=== PATIENT | female | born 1935 | race Caucasian/White ===

== ENCOUNTER 2016-05-31 10:42 | Inpatient (IN) | payer OTHER, BC ==
[2016-05-14 10:56] VITALS: BMI 22.0
--- NOTE | 2016-05-30 09:13 | HISTORY & PHYSICAL EXAMINATION ---
CHIEF COMPLAINT: Left hip pain. HISTORY OF PRESENT ILLNESS: Desitny is a 79-year-old female with a 1-1/2 year history of pain in her left hip. The patient rates her pain a 7/10. She has pain with her daily activities. She has limited standing and walking tolerance. Pain is worse with weightbearing. The patient had injections, exercise and Tylenol plus tramadol without relief. She has failed conservative treatment and is scheduled for left hip replacement. PAST MEDICAL HISTORY: Hypertension, hypercholesterolemia, history of CVA. She denies heart disease or DVT. PAST SURGICAL HISTORY: Cholecystectomy, tubal ligation, ORIF left elbow, tonsillectomy, adenoidectomy. SOCIAL HISTORY: The patient denies alcohol or tobacco use. She lives in a single story home. She is and retired. FAMILY HISTORY: Negative for DVT. DISCHARGE MEDICATIONS: Aspirin 325 mg daily, lisinopril 40 mg daily, amlodipine 5 mg daily, folic acid 1 mg daily, Plavix 75 mg daily, multivitamin 1 daily, calcium plus D, vitamin D3, CoQ10, rosuvastatin 20 mg, Tylenol as needed, tramadol as needed. ALLERGIES: PENICILLIN. REVIEW OF SYSTEMS: See HPI. Ten other systems reviewed, all negative. PHYSICAL EXAMINATION: VITAL SIGNS: Height 5 foot 2 inches, weight 121 pounds, BMI is 22. GENERAL: This is a well-developed, well-nourished female who is alert and oriented x3. Mood and affect are appropriate. HEENT: Normocephalic, atraumatic. Mucous membranes are moist and intact. NECK: Supple without lymphadenopathy. HEART: Regular rate and rhythm without murmurs, rubs or gallops. LUNGS: Clear to auscultation without wheezes or rhonchi. ABDOMEN: Soft and nontender. Bowel sounds are equal and active. EXTREMITIES: No ecchymosis, redness or warmth. Thigh and calf are soft and nontender. Log roll of the hip reproduces pain in the groin. She is neurovascularly intact with +5/5 strength. Range of motion reproduces pain in the hip and range of motion is decreased. She walks with an antalgic gait. X-RAY EXAMINATION: AP and lateral views show joint space narrowing and osteophyte formation. IMPRESSION: Degenerative joint disease, left hip. PLAN: The patient will be admitted for a left total hip arthroplasty, direct anterior approach. The patient is on chronic Plavix and aspirin which we will resume postoperatively.
[~2016-05-31] VITALS: Ht 157.5 cm; Wt 54.6 kg
[2016-05-31] VITALS (7 sets, daily range): BP systolic 96–159; BP diastolic 60–73; PULSE 62–75; TEMP 36.4–36.5; O2SAT 96–100; Ht 157.5 cm; Wt 54.6 kg
[~2016-05-31 10:42] MED LIST: ACET-1256 PO; ACETAMINOPHEN 500 MG TAB PO SCH; AMLO-110 PO; ASPI325T39 PO; BUPIVACAINE 0.5 % 5 MG/1 ML PF 10ML VIAL ONE; CALC500C70 PO; CHOL1000 PO; CLINDAMYCIN 600 MG/54 ML D5W 54 ML IV SCH; CLOP1TAB15 PO; COEN1CAP28 PO; CeleBREX 200 MG CAP PO SCH; DEXAMETHASONE 4 MG TAB PO SCH; FAMOTIDINE 20 MG TAB PO SCH; FOLI1TAB7 PO; GABAPENTIN 300 MG CAP PO SCH; LACTATED RINGER'S 1000ML 1,000 ML IV SCH; LACTATED RINGER'S 1000ML IV SCH; LISI40TA PO; METOCLOPRAMIDE HCL 10 MG TAB PO SCH; MULT-506 PO; OXYCODONE HCL 10 MG TABCR (OXYCONTIN) PO SCH; POLYMYXIN B SULFATE 100,000 UNITS in NSS 100ML IR SCH; ROPIVACAINE 5MG/ML 30 ML 150 MG, BUPIVACAINE/EPINEPHR 0.5% MPF 30 ML, KETOROLAC TROMETH... INFIL SCH; ROSU20TA PO; TRAM-10 PO; VANCOMYCIN INJ 400 MG in NSS 100ML IR SCH
[2016-05-31] MEDS ORDERED: LABETALOL HCL IV 5 MG/ML 20ML IV PRN (11:15)
[2016-05-31] MEDS ORDERED: ATROPINE SULFATE 0.1 MG/ML 5ML SYR IV PRN (11:15)
[2016-05-31] MEDS ORDERED: EpHEDrine SULFATE INJ 50 MG/ML AMP IV PRN (11:15)
[2016-05-31] MEDS ORDERED: FENTANYL CITRATE INJ 50 MCG/1 ML 2 ML VIAL IV PRN (11:15)
[2016-05-31] MEDS ORDERED: HYDROmorphone INJ 1 MG/ML SYR IV PRN (11:15)
[2016-05-31] MEDS ORDERED: ONDANSETRON INJ 2 MG/ML 2 ML VIAL IV PRN ×2 (11:15→15:30)
[2016-05-31] MEDS ORDERED: MEPERIDINE HCL 25 MG/ML CARP IV PRN (11:15)
[2016-05-31] MEDS ORDERED: ASPI81TA28 PO (11:16)
[2016-05-31] MEDS ORDERED: MIDAZOLAM HCL 1 MG/ML 2ML VIAL ONE ×2 (12:58→13:39)
--- NOTE | 2016-05-31 13:09 | History & Physical Bridge Note ---
H&P Re-Evaluation Bridge Note: I have examined the patient, reviewed the History & Physical and in the interval since the performance of the History & Physical I have noted the following changes of clinical significance: No changes noted
[2016-05-31] MEDS ORDERED: ORTHO JOINT ANESTHETIC ONE (13:41)
[2016-05-31] MEDS ORDERED: POVIDONE-IODINE OP SOLN 30 ML BTL ONE (13:41)
[2016-05-31] MEDS ORDERED: BACITRACIN 50000 UNIT VIAL ONE (13:41)
[2016-05-31] MEDS ORDERED: PROPOFOL IV EMULSION 10 MG/ML 20 ML VIAL IV ONE (14:28)
[2016-05-31] MEDS ORDERED: PHENYLEPHRINE 100MCG/ML 5ML SYR ONE (14:52)
--- NOTE | 2016-05-31 15:28 | [facility] Post Operative Brief Note ---
Immediate Operative Summary Operative Date May 31, 2016. Pre-Operative Diagnosis Left hip degenerative joint disease Post-Operative Diagnosis Left hip degenerative joint disease Procedure(s) Performed Left Total Hip Arthroplasty Direct Anterior Approach, Uncemented Surgeon Dr. Kyler Johansen Rotary Drier Operator Surgeon(s) Angelica Rebollar PA-C Estimated Blood Loss 50ml Findings djd Specimens A: Left femoral head Complication(s) None Disposition Recovery Room / PACU
[2016-05-31] MEDS ORDERED: MoRPHine SULFATE 2 MG/ML CARP IV PRN (15:30)
[2016-05-31] MEDS ORDERED: ALUMINUM/MAGNESIUM/SIMETH (MAALOX MAX) 30 ML UDC PO PRN (15:30)
[2016-05-31] MEDS ORDERED: BISACODYL 10 MG SUPP PR PRN (15:30)
[2016-05-31] MEDS ORDERED: DiphenhydrAMINE HCL 50 MG/ML VIAL IV PRN (15:30)
[2016-05-31] MEDS ORDERED: METOCLOPRAMIDE HCL INJ 5 MG/ML 2 ML VIAL IV PRN (15:30)
[2016-05-31] MEDS ORDERED: SOD PHOSPHATE/SOD BIPHOSPHATE ENEMA 132 ML BTL PR PRN (15:30)
[2016-05-31] MEDS ORDERED: ZOLPIDEM TARTRATE 5 MG TAB PO PRN (15:30)
[2016-05-31] MEDS ORDERED: MAGNESIUM HYDROXIDE SUSP 30 ML UDC PO PRN (15:30)
--- NOTE | 2016-05-31 16:26 | Anesthesiology Progress Note ---
Anesthesia Post Op Note Date & Time May 31, 2016 at 16:25 Vital Signs Pain Intensity: 0 Vital Signs Past 12 Hours Date Time Temp Pulse Resp B/P Pulse Ox O2 Delivery O2 Flow Rate FiO2 05/31/16 16:20 37.3 77 16 107/58 100 Nasal Cannula 2 05/31/16 16:10 73 16 112/60 100 Nasal Cannula 2 05/31/16 16:00 75 16 108/56 100 Nasal Cannula 2 05/31/16 15:50 71 16 105/56 100 Nasal Cannula 2 05/31/16 15:41 36.6 81 16 104/64 100 Nasal Cannula 2 05/31/16 11:16 36.5 66 18 138/73 99 Room Air Notes Mental Status: alert / awake / arousable, participated in evaluation Pt Amnestic to Procedure: Yes Nausea / Vomiting: adequately controlled Pain: adequately controlled Airway Patency, RR, SpO2: stable & adequate BP & HR: stable & adequate Hydration State: stable & adequate Anesthetic Complications: no major complications apparent
--- NOTE | 2016-05-31 16:40 | DIAGNOSTIC IMAGING REPORT ---
LEFT PELVIS/UNILATERAL HIP 1 VIEW CLINICAL HISTORY: IN PACU - A/P PELVIS and LATERAL HIP INCLUDING ALL OF IMPLANT joint replacement COMPARISON: None. DISCUSSION: Total left hip replacement. Prosthetic is in good position. Surgical drains are in place. There is no evidence for soft tissue swelling. IMPRESSION: Left total joint replacement. Electronically signed by: Jae Adler M.D. 05/31/2016 4:39 PM Dictated Date/Time: 05/31/2016 4:39 PM
--- NOTE | 2016-05-31 17:15 | OPERATIVE REPORT ---
DATE OF OPERATION: 05/31/2016 PREOPERATIVE DIAGNOSIS: Degenerative arthritis, left hip. POSTOPERATIVE DIAGNOSIS: Same. PROCEDURE: Left total hip replacement. SURGEON: Kyler Johansen MD BOW MAKER CUSTOM: CARLA Holden ANESTHESIA: Spinal. BLOOD LOSS: 50 mL. REPLACEMENT FLUIDS: 1500 mL crystalloid. DRAINS: Hemovacs x1. CULTURES: None. COMPLICATIONS: None. COMPONENTS USED: [employer] hip system, acetabulum size 50, femur size 9 standard offset, femoral head -3, 32 mm. NOTE: CARLA Holden was present and assisted throughout due to the complicated nature of this case. She helped with preparation and set up. She first assisted throughout and personally closed the fascial, subcutaneous and skin layers and applied the postoperative dressing. DESCRIPTION OF PROCEDURE: Following satisfactory spinal, the patient was supine. The left leg was placed in the traction device and the right leg in the well leg jackson. The leg was prepared with ChloraPrep and draped sterilely. Following a surgical time-out, an anterior approach in the interval between the sartorius and tensor muscles was completed. The circumflex femoral vessels were identified and ligated. An anterior capsulotomy was performed exposing a severely arthritic femoral neck and head. The femoral neck and head were trimmed and removed. The acetabular self-retaining retractor was placed. Acetabular reaming was completed and with fluoroscopic guidance, the 50 shell was impacted into an anatomic position, secured with a dome screw. Local anesthetic was placed and after irrigation, the polyethylene liner was placed. Attention was turned to the femur, which was placed in a position of external rotation, extension and adduction. Femoral canal was prepared up to a size 9. A trial reduction with a -3 head under fluoroscopy showed good fit and fill of the proximal canal and religion of leg lengths using anatomic landmarks. The hip was dislocated. The trial component was removed. The final implant was placed and after irrigation, the hip was reduced. A Betadine soak was performed for 5 minutes and local anesthetic was placed. The wound was then irrigated. The capsule was closed with #1 Vicryl interrupted. A drain was placed. The fascia was closed with a running suture of #1 Vicryl, the subcutaneous tissues with 2-0 Vicryl, and the skin with a running subcuticular stitch of 3-0 V-Loc. Dermabond and dry dressing were applied. The patient was returned to her bed in stable condition. I attest to the content of the Intraoperative Record and any orders documented therein. Any exceptio ns are noted below.
[2016-05-31] MEDS: CLINDAMYCIN IV 600 MG in DEXTROSE 5% ADD-VANTAGE 50ML 50 ML IV SCH (19:46)
[2016-05-31] MEDS: D5W AND 1/2NSS + 20MEQ KCL 1,000 ML IV SCH (19:46)
[2016-05-31] MEDS: SENNA 8.6 MG TAB PO SCH (21:50)
[2016-05-31] MEDS: ROSUVASTATIN CALCIUM 20 MG TAB PO SCH (21:50)
[2016-05-31] MEDS: ACETAMINOPHEN 500 MG TAB PO SCH (21:51)
[2016-05-31] MEDS: TRAMADOL HCL 50 MG TAB PO PRN (21:51)
[2016-06-01] MEDS: OXYCODONE HCL IR 5 MG TAB (IMMEDIATE RELEASE) PO PRN (00:42)
[2016-06-01 03:31] VITALS: BP 100/62; PULSE 61; TEMP 36.7; O2SAT 96
[2016-06-01] MEDS: CLINDAMYCIN IV 600 MG in DEXTROSE 5% ADD-VANTAGE 50ML 50 ML IV SCH (04:04)
[2016-06-01] MEDS: D5W AND 1/2NSS + 20MEQ KCL 1,000 ML IV SCH ×2 (04:04→13:41)
[2016-06-01] MEDS: ACETAMINOPHEN 500 MG TAB PO SCH ×3 (05:34→21:46)
[2016-06-01 07:00] VITALS: BP 111/57; PULSE 59; TEMP 36.5; O2SAT 100
[2016-06-01 07:20] LABS: BASO % 0.1 %; BASO ABS # 0.01 K/uL (0-0.2); HEMATOCRIT 23.7 % (37-47); IG% 0.3 %; LYMPH % 9.7 %; LYMPH ABS # 0.96 K/uL (1.2-3.4); MEAN CELL VOLUME 93.3 fL (80-100); MEAN CORPUSCULAR HEMOGLOBIN 32.3 pg (25-34); MEAN CORPUSCULAR HGB CONC 34.6 g/dl (32-36); MONO % 6.8 %; NEUT % 83.1 %; PLATELET COUNT 196 K/uL (130-400); RED BLOOD COUNT 2.54 M/uL (4.2-5.4); WHITE BLOOD COUNT 9.92 K/uL (4.8-10.8)
[2016-06-01 07:58] LABS: CALCIUM 8.5 mg/dl (8.5-10.1); CREATININE 1.1 mg/dl (0.60-1.20); POTASSIUM 4.2 mmol/L (3.5-5.1)
[2016-06-01 08:01] LABS: COMPLETE YES
--- NOTE | 2016-06-01 08:45 | Orthopedic Progress Note ---
Orthopedic Progress Note Date of Service Jun 01, 2016. Subjective Post OP Day: 1 Reports: feeling well, pain controlled w PO medications, Denies: SOB, calf pain , chest pain, complaints, light headedness Objective calves soft nontender, N/V intact, hip located, dressing C/D/I, A&O x3, toes mobile, hemovac drainage (425 total 100 last shift ) Date Time Temp Pulse Resp B/P Pulse Ox O2 Delivery O2 Flow Rate FiO2 06/01/16 03:31 36.7 61 16 100/62 96 Room Air 06/01/16 00:35 Room Air 05/31/16 23:38 36.4 62 16 99/60 96 Room Air 05/31/16 19:45 36.5 69 16 96/60 98 Room Air 05/31/16 17:57 72 16 159/70 100 3.0 05/31/16 17:44 68 16 107/68 99 2.0 05/31/16 17:15 75 16 112/66 99 2.0 05/31/16 16:45 99 Nasal Cannula 2.0 05/31/16 16:45 Nasal Cannula 2.0 05/31/16 16:45 36.4 75 16 114/67 99 Nasal Cannula 2.0 05/31/16 16:20 37.3 77 16 107/58 100 Nasal Cannula 2 05/31/16 16:10 73 16 112/60 100 Nasal Cannula 2 05/31/16 16:00 75 16 108/56 100 Nasal Cannula 2 05/31/16 15:50 71 16 105/56 100 Nasal Cannula 2 05/31/16 15:41 36.6 81 16 104/64 100 Nasal Cannula 2 05/31/16 11:16 36.5 66 18 138/73 99 Room Air Laboratory Results 24 Hours: Test 06/01/16 06:05 White Blood Count 9.92 K/uL Red Blood Count 2.54 M/uL Hemoglobin 8.2 g/dL Hematocrit 23.7 % Mean Corpuscular Volume 93.3 fL Mean Corpuscular Hemoglobin 32.3 pg Mean Corpuscular Hemoglobin Concent 34.6 g/dl Platelet Count 196 K/uL Mean Platelet Volume 9.0 fL Neutrophils (%) (Auto) 83.1 % Lymphocytes (%) (Auto) 9.7 % Monocytes (%) (Auto) 6.8 % Eosinophils (%) (Auto) 0.0 % Basophils (%) (Auto) 0.1 % Neutrophils # (Auto) 8.25 K/uL Lymphocytes # (Auto) 0.96 K/uL Monocytes # (Auto) 0.67 K/uL Eosinophils # (Auto) 0.00 K/uL Basophils # (Auto) 0.01 K/uL Assessment & Plan Assessment: pod 1 greer ANEMIA ACUTE ON CHRONIC DUE TO SURGERY BUT JHON WELL HX TIA ON PLAVIX Plan: MONITOR HGB BEGIN PT PLAN DC TOMORROW W [facility]VANT[facility] HH IF STABLE Inhouse Planning Pain Management: PO Tylenol, Oxy IR DVT Prophylaxis: TEDs, SCDs, ASA, other (PLAVIX ) Discharge Planning Discharge Planning: home with home health Pain Management: PO Tylenol, Oxy IR DVT Prophylaxis: TEDs, ASA Therapy: Physical Therapy, Occupational Therapy
[2016-06-01] MEDS: CALCIUM 600MG + VIT D 400 IU TAB PO SCH (09:55)
[2016-06-01] MEDS: ASPIRIN 325 MG ECTAB PO SCH (09:55)
[2016-06-01] MEDS: AMLODIPINE BESYLATE 5 MG TAB PO SCH (09:56)
[2016-06-01] MEDS: MULTIVITAMIN TAB PO SCH (09:56)
[2016-06-01] MEDS: CLOPIDOGREL BISULFATE 75 MG TAB PO SCH (09:57)
[2016-06-01] MEDS: LISINOPRIL 40 MG TAB PO SCH (09:57)
[2016-06-01] MEDS: PANTOprazole SOD 40 MG TAB PO SCH (09:57)
[2016-06-01 10:45] VITALS: O2SAT 100
[2016-06-01 11:05] VITALS: BP 110/65; PULSE 66
[2016-06-01] MEDS: TRAMADOL HCL 50 MG TAB PO PRN ×2 (15:32→20:38)
[2016-06-01 15:47] VITALS: BP 120/60; PULSE 75; TEMP 36.6; O2SAT 100
--- NOTE | 2016-06-01 20:31 | Discharge Instructions ---
Discharge Instructions Admission Reason for Admission: Left Hip Degenerative Arthritis Discharge Discharge Diagnosis / Problem: Left Hip Djd Discharge Goals Goal(s): Decrease discomfort, Improve function Activity Recommendations Activity Limitations: per Instructions/Follow-up section Weightbearing Status: Left weightbearing (as tolerated) . Instructions / Follow-Up Instructions / Follow-Up ACTIVITY RECOMMENDATIONS: SELF CARE INSTRUCTIONS AFTER TOTAL HIP REPLACEMENT : Direct Anterior Approach Until the incision and soft tissues around your hip have healed, there is a possibility that the hip prosthesis could dislocate. A. Hip flexion ( Up & Down out of chair or steps ) may be difficult. This is normal. B. Numbness in front of the thigh is also normal for a few weeks. C. Use hand rails when walking on stairs. D. Wear low heeled shoes with non-slip soles. E. Be sure that your floors are free of things that could trip you - throw rugs , electrical cords, small objects. Avoid wet and waxed floors, especially with crutches and canes. F. Try to walk several times a day with rest periods between. G. Continue with all the exercises taught to you in the hospital. Again, make walking a part of your daily routine. SPECIAL CARE INSTRUCTIONS: VERY IMPORTANT TO READ AND REVIEW A. You may still be at risk for phlebitis and blood clots. 1. Wear surgical stockings (YADIEL hose) for 2 weeks after surgery to improve circulation and reduce swelling. 2. Take Aspirin 81mg twice daily for 4 weeks or as directed by your doctor. This is your blood thinner. 3. High risk patients may be prescribed a stronger blood thinner if necessary. 4. If you are on Coumadin normally, your family doctor/slip caster should monitor your blood work. Expect a phone call the day of or the day after bloodwork is drawn to adjust your dosage. B. You must take antibiotics before having dental work, bladder, bowel and other surgery. Your doctor will provide you with a permanent card to carry describing precautions. C. Call [facility] if you have a fever, redness or swelling around the incision, cloudy drainage from incision, or sudden increase in pain in your hip, not relieved by your regular pain medication. D. Please call the office at if you have any concerns or questions about your operation or recovery. * YOU MAY SHOWER, NO TUB BATHS UNTIL CLEARED BY YOUR DOCTOR. - Keep an extra close eye on the top portion of your incision. Be sure to keep clean & dry. * WEAR YADIEL HOSE 20 HOURS PER DAY FOR 2 WEEKS. * YOU MAY PROGRESS FROM A WALKER, TO A CANE, TO INDEPENDENT AT YOUR OWN PACE. * MOST PATIENTS WILL HAVE HOME NURSING FOR THERAPY. IF YOU DECIDE TO DO OUTPATIENT PHYSICAL THERAPY, PLEASE SCHEDULE THIS 3 TIMES PER WEEK. * DERMABOND Prineo- This is a mesh tape dressing that is covered with glue. It should remain in place until the incision is properly healed, usually 10-14 days. This dressing is designed to naturally slough off. You may trim the excess mesh tape as it peels off. Incision may be briefly wet in a shower. Dry immediately by blotting with a clean, dry towel. Do not bath or swim until instructed by your doctor. Do not scratch, rub, or pick at the dressing. Do not apply any topical ointments or lotions until dressing is completely removed and/or instructed by your doctor. There may be a small piece of suture material at one end of your incision. Do not pull or trim this. If it is bothersome or catching on clothing, you may cover it with a band-aid. FOLLOW UP VISIT: If appointment is not already scheduled: Please call [facility] to make a follow-up appointment for 2 weeks after your surgery at . Current Hospital Diet Patient's current hospital diet: Regular Diet Discharge Diet Recommended Diet: Regular Diet Procedures Procedures Performed: Left Total Hip Arthroplasty Direct Anterior Approach, Uncemented Pending Studies Studies pending at discharge: no Medical Emergencies . Who to Call and When: Medical Emergencies: If at any time you feel your situation is an emergency, please call 911 immediately. . Non-Emergent Contact Non-Emergency issues call your: Surgeon Call Non-Emergent contact if: temperature is above 101.5, your pain is not controlled, your pain is worsening, wound has increased drainage, wound has increased redness . "Provider Documentation" section prepared by Hasmukh Sandoval. VTE Core Measure Inpt VTE Proph given/why not?: Other Anticoagulation, T.E.D. Stockings, SCD's [place] Drug Monitoring Program Search Results: patient reviewed within database, no issues identified
[2016-06-01] MEDS: SENNA 8.6 MG TAB PO SCH (20:37)
[2016-06-01] MEDS: ROSUVASTATIN CALCIUM 20 MG TAB PO SCH (20:37)
[2016-06-01 23:10] VITALS: BP 104/59; PULSE 65; TEMP 36.9; O2SAT 95
[2016-06-02] MEDS: TRAMADOL HCL 50 MG TAB PO PRN ×2 (03:38→09:48)
[2016-06-02] MEDS: ACETAMINOPHEN 500 MG TAB PO SCH (05:41)
[2016-06-02 06:51] LABS: HEMATOCRIT 24.2 % (37-47)
[2016-06-02 07:20] VITALS: BP 104/63; PULSE 61; TEMP 36.9; O2SAT 96
--- NOTE | 2016-06-02 08:22 | Orthopedic Progress Note ---
Orthopedic Progress Note Date of Service Jun 02, 2016. Subjective Post OP Day: 2 Reports: feeling well, pain controlled w PO medications, Denies: SOB, chest pain , complaints, light headedness Objective calves soft nontender, hip located, dressing C/D/I, A&O x3, toes mobile Date Time Temp Pulse Resp B/P Pulse Ox O2 Delivery O2 Flow Rate FiO2 06/02/16 07:20 36.9 61 16 104/63 96 Room Air 06/02/16 07:14 Room Air 06/02/16 00:15 Room Air 06/01/16 23:10 36.9 65 16 104/59 95 Room Air 06/01/16 15:47 36.6 75 16 120/60 100 Room Air 06/01/16 15:20 Room Air 06/01/16 11:05 66 06/01/16 10:45 100 Room Air Laboratory Results 24 Hours: Test 06/02/16 05:55 Hematocrit 24.2 % Hemoglobin 8.1 g/dL Assessment & Plan Assessment: pod 2 greer ANEMIA ACUTE ON CHRONIC DUE TO SURGERY BUT JHON WELL HX TIA ON PLAVIX Plan: MONITOR HGB stable 8.1 today BEGIN PT PLAN DC HOME TODAY W ADVANTAGE HH Inhouse Planning Pain Management: PO Tylenol, Oxy IR DVT Prophylaxis: TEDs, SCDs, ASA, other (PLAVIX ) Discharge Planning Discharge Planning: home with home health Pain Management: PO Tylenol, Oxy IR DVT Prophylaxis: TEDs, ASA Therapy: Physical Therapy, Occupational Therapy
[2016-06-02] MEDS ORDERED: SNK PO (08:30)
[2016-06-02] MEDS ORDERED: ACET-1138 PO (08:30)
[2016-06-02] MEDS ORDERED: RXC5 PO (08:30)
[2016-06-02] MEDS ORDERED: TRAM-10 PO (08:30)
[2016-06-02] MEDS: AMLODIPINE BESYLATE 5 MG TAB PO SCH (09:02)
[2016-06-02] MEDS: LISINOPRIL 40 MG TAB PO SCH (09:03)
[2016-06-02] MEDS: ASPIRIN 325 MG ECTAB PO SCH (09:03)
[2016-06-02] MEDS: CALCIUM 600MG + VIT D 400 IU TAB PO SCH (09:03)
[2016-06-02] MEDS: CLOPIDOGREL BISULFATE 75 MG TAB PO SCH (09:03)
[2016-06-02] MEDS: PANTOprazole SOD 40 MG TAB PO SCH (09:04)
[2016-06-02] MEDS: MULTIVITAMIN TAB PO SCH (09:04)
[2016-06-02] MEDS: OXYCODONE HCL IR 5 MG TAB (IMMEDIATE RELEASE) PO PRN (09:42)
[2016-06-02 10:20] VITALS: BP 104/63; PULSE 61; TEMP 36.9; O2SAT 96
--- NOTE | 2016-06-04 07:14 | DIAGNOSTIC IMAGING REPORT ---
INTRAOPERATIVE RADIOGRAPH CLINICAL HISTORY: Left hip arthroplasty. Fluoroscopy time: 9 seconds. FINDINGS: A single spot fluoroscopic view of the left hip is presented. A bipolar left hip arthroplasty is in near-anatomic alignment. A single cortical lag screw transfixes the acetabular cup. There is no evidence of fracture in this fluoroscopic image. Overlying soft tissue edema is noted. IMPRESSION: Intraoperative image from a left hip arthroplasty procedure as above. Electronically signed by: Percy Whitley M.D. 05/31/2016 3:27 PM Dictated Date/Time: 05/31/2016 3:27 PM
--- NOTE | 2016-06-04 10:31 | EDITING REQUIRED CODING QUERY ---
CODING QUERY ANEMIA To promote full compliance with coding requirements relating to patient care, physician participation is requested in all cases of medical biller coder uncertainty. Please assist us with the question(s) below: Coding Question(s): The record reflects the following clinical documentation: ANEMIA ACUTE ON CHRONIC DUE TO SURGERY There are several coding choices for this diagnosis and more specificity is needed for code selection. Lyle indicate the type of anemia this patient had: ( ) Acute blood loss anemia ( ) Acute postoperative anemia due to dilutional fluids (x ) Chronic blood loss anemia ( ) Iron deficient anemia due to blood loss ( ) Iron deficiency anemia ( ) Anemia, unspecified or other ( ) Other: (please specify) ( ) Unable to determine Thank you for your time, Roxi Diaz BA, , SUPERVISOR [employer]CTIONAL TESTING, COMPRESSOR STATION ENGINEER
== END 2016-06-02 11:31 | disposition home health service (06) | DRG 470 ==
LOC: ENRESERVDT → ENRESERVTM → C.ACU 10:42 → C.MSN 12:00 → UNDOADMIN 15:32
PROVIDERS: ADMIT Orthopaedic Surgery; ATTEND Orthopaedic Surgery
PROC: 0SRB04A Replacement of Left Hip Joint with Ceramic on Polyethylene Synthetic Substitute, Uncemented, Open Approach (ICD-10-PCS; principal; 2016-05-31 12:30)
DX: M16.12 Unilateral primary osteoarthritis, left hip (principal); D50.0 Iron deficiency anemia secondary to blood loss (chronic); I10 Essential (primary) hypertension; E78.00 Pure hypercholesterolemia, unspecified; Z86.73 Personal history of transient ischemic attack (TIA), and cerebral infarction without residual deficits; Z79.02 Long term (current) use of antithrombotics/antiplatelets; Z79.82 Long term (current) use of aspirin; Z79.891 Long term (current) use of opiate analgesic; Z79.899 Other long term (current) drug therapy